=== PATIENT | female | born 1970 | race Caucasian/White ===

== ENCOUNTER 2024-04-02 13:06 | Emergency (ER) | payer BC, SELFPAY ==
[2024-04-02 13:24] VITALS: BP 126/96; PULSE 95; RESP 18; TEMP 36.7; O2SAT 100
--- NOTE | 2024-04-02 13:25 | PC.NURSE ---
PT BROUGHT IN A KNIFE WITH ARRIVAL BY EMS. SECURITY SECURED KNIFE DOWNSTAIRS IN LOCKED OFFICE
--- NOTE | 2024-04-02 14:35 | PC.NURSE ---
PT ANGRY THAT I WONT' GIVE HER KNIFE BACK SO SHE CAN OPEN UP HER CAN OF BEANS. SHE IS LEAVING. KNIFE BROUGHT BACK FROM SECURITY AND GIVEN TO PT AND SHE WALKED OUT OF THE DEPARTMENT WITH HER CAN OF BEANS AND OTHER BELONGINGS
== END 2024-04-02 15:22 | disposition left against medical advice (07) ==
LOC: ANHED 15:01
DX: R10.2 Pelvic and perineal pain (principal)
CPT/HCPCS: 99199

== ENCOUNTER 2024-06-14 17:51 | Emergency (ER) | payer BC, SELFPAY ==
--- NOTE | 2024-06-14 18:27 | PC.NURSE ---
pt left d/t wait times.
--- NOTE | 2024-06-14 21:38 | PC.NURSE ---
called at 2124 without answer
--- NOTE | 2024-06-15 00:30 | ED_ITS ---
HPI - Female Genitourinary General Chief complaint: Urogenital-Female Stated complaint: UTI symptoms Time Seen by Provider: 06/15/24 00:20 Source: patient Mode of arrival: ambulatory Limitations: no limitations History of Present Illness HPI Narrative: 53 YEARS OLD WHITE FEMALE CAME TO THE ED WALKING COMPLAINING OF BURNING URINATION FOR THE LAST 2 WEEKS. PATIENT WAS TREATED AT [facility], PATIENT DOES REMEMBER THE NAME OF THE ANTIBIOTIC. PATIENT IS HOMELESS. SHE DENIES ANY FEVER, CHILLS, NAUSEA, VOMITING, ABDOMINAL PAIN OR BACK PAIN. PATIENT REQUESTED A SANDWICH AND DRINK AND A BUS PASS. Related Data Allergies Allergy/AdvReac Type Severity Reaction Status Date / Time PROPOXYPHENE NAPSYLATE Allergy Mild Unknown Uncoded 04/02/24 13:29 Review of Systems Review of Systems: All systems reviewed & are unremarkable except as noted in HPI and below Exam Narrative: GENERAL APPEARANCE: WELL-DEVELOPED, WELL-NOURISHED SKIN: NORMAL COLOR CHEST AND RESPIRATORY: AIRWAY PATENT, NO RESPIRATORY DISTRESS, NO ACCESSORY MUSCLE USE HEART: REGULAR RATE/RHYTHM ABDOMEN: SOFT, NONTENDER, NO ORGANOMEGALY, QUIET BOWEL SOUNDS NEUROLOGIC: ALERT AND ORIENTED ?3, DIRECTOR SOFTWARE IS NORMAL TESTED, NO GROSS MOTOR DEFICIT MDM - Female Genitourinary MDM Narrative Medical decision making narrative: PATIENT CAME WITH DYSURIA VITAL SIGNS ARE STABLE PHYSICAL EXAMINATION SHOWING A HOMELESS PATIENT, POOR HYGIENIC CONDITION, OTHERWISE INSIGNIFICANT DIFFERENTIAL DIAGNOSIS URINARY TRACT INFECTION URINALYSIS SHOWED SHOWED Differential Diagnosis Differential diagnosis: Likely other ( ABOVE) Lab Data Labs: Lab Results 06/15/24 Range/Units 00:39 Urine Color Pending Urine Appearance Pending Urine pH Pending Ur Specific [place] Pending Urine Protein Pending Urine Glucose (UA) Pending Urine Ketones Pending Ur Blood (Man) Pending Urine Nitrate Pending Urine Bilirubin Pending Urine Urobilinogen Pending Add Ur Microanalysis Pending Leukocyte Esterase Rfl Pending Urine RBC Pending Urine WBC Pending Ur Squamous Epith Cells Pending Urine Bacteria Pending Urine Casts Pending Critical Care Time Critical Care Time Critical Care Time: No Discharge Plan Discharge Clinical Impression: Urinary tract infection Patient Disposition: Left Without Being Seen Instructions: Urinary Tract Infection in Women (ED) Additional Instructions: RETURN IF SYMPTOMS ARE WORSENING , CALL YOUR FAMILY PHYSICIAN FOR APPOINTMENT, TAKE TYLENOL NEEDED FOR ACHES AND PAIN, CONTINUE HOME MEDICATIONS. Prescriptions: New ciprofloxacin HCl [Cipro] 500 mg tablet 500 mg PO Q12H Qty: 14 0RF phenazopyridine [Pyridium] 200 mg tablet 200 mg PO TID PRN (Reason: pain) Qty: 6 0RF Follow-up/Referrals: UNKNOWN,DOCTOR [Primary Care Provider] -
[2024-06-15 00:52] LABS: Add Urine Microscopic? YES; Appearance Urine Clear (Clear); Bacteria Urine None Seen /hpf; Bilirubin Urine Negative (Negative); Blood Urine Negative (Negative); Color Urine Yellow (Yellow); Glucose Urine UA Negative (Negative); Ketones Urine Negative (Negative); Leukocyte Esterase Ur 2+ LEU/UL (Negative); Need Manual Microscopic Reviewed; Nitrate Urine Negative (Negative); Non Pathogenic Casts 0-2; Protein Urine Negative (Negative); RBC Urine 0-2 /hpf (0-2); Specific Grav Ur 1.008 (1.001-1.035); Squamous Epithelial Cell Urine Occasional /hpf (Few); Urobilinogen Urine 0.2 mg/dL (<2.0); WBC Urine 0-5 /hpf (0-3)
== END 2024-06-15 01:30 | disposition home or self-care (01) ==
PROVIDERS: Emergency Medicine; Emergency Provider Emergency Medicine
DX: N39.0 Urinary tract infection, site not specified (principal)
CPT/HCPCS: 81001; 87086; 99283

== ENCOUNTER 2024-06-17 12:52 | Emergency (ER) | payer BC, SELFPAY ==
[2024-06-17 13:01] VITALS: BP 107/79; PULSE 104; RESP 16; TEMP 36.3; O2SAT 99
--- NOTE | 2024-06-17 14:13 | PC.NURSE ---
pt said I am not able to urinate at this time. Pt is asking to eat and drink first.
--- NOTE | 2024-06-17 14:53 | PC.NURSE ---
Nurse noticed the supply drawer being completely empty. Pt denied getting into the drawer. Ed security called and pt's belonging bag was searched by the security and all the missing supplies were found.
[2024-06-17 14:54] LABS: Add Urine Microscopic? YES; Appearance Urine Clear (Clear); Bacteria Urine Rare /hpf; Bilirubin Urine Negative (Negative); Blood Urine Negative (Negative); Color Urine Yellow (Yellow); Glucose Urine UA Negative (Negative); Ketones Urine Negative (Negative); Leukocyte Esterase Ur 3+ LEU/UL (Negative); Nitrate Urine Negative (Negative); Non Pathogenic Casts 0-2; Protein Urine Negative (Negative); RBC Urine 0-2 /hpf (0-2); Specific Grav Ur 1.018 (1.001-1.035); Squamous Epithelial Cell Urine Moderate /hpf (Few); pH Urine 5.5 (5.0-9.0)
--- NOTE | 2024-06-17 14:59 | ED_ITS ---
HPI - Female Genitourinary General Chief complaint: Urogenital-Female Stated complaint: UTI/ STI Time Seen by Provider: 06/17/24 13:11 Source: patient Mode of arrival: ambulatory Limitations: no limitations History of Present Illness HPI Narrative: 57-year-old here with the complaints of this area for last few days is. She denies any fever or chills. She was at the police station of recommended him to come to the ER she denies any fever chills. No history of nausea vomiting. She wants something to eat. Patient states that she is on a Pyridium and she ran out of the medication few days ago. MD elicited complaint: dysuria Pertinent past history: recurrent UTIs Female Urogenital Radiation: Non-Radiating Vaginal discharge: none Vaginal bleeding: none Urinary symptoms: Dysuria Exacerbating factors: none Related Data Allergies Allergy/AdvReac Type Severity Reaction Status Date / Time PROPOXYPHENE NAPSYLATE Allergy Mild Unknown Uncoded 04/02/24 13:29 Review of Systems Review of Systems: All systems reviewed & are unremarkable except as noted in HPI and below Eyes: Eyes: Reports no additional eye complaints ENT: Reports system reviewed and no additional complaints, except as documented Cardiovascular: Cardiovascular: Reports no additional cardiovascular complaints Respiratory: Respiratory: Reports no additional respiratory complaints Gastrointestinal: Gastrointestinal: Reports no additional gastrointestinal complaints Genitourinary: Genitourinary: Reports as per HPI Musculoskeletal: Musculoskeletal: Reports no additional musculoskeletal complaints Neurologic: Reports system reviewed and no additional complaints, except as documented Exam Narrative: GENERAL: Well-appearing, well-nourished, and in no acute distress. HEAD: Normocephalic, atraumatic. EYES: PERRLA and EOMI.. NECK: Supple. CHEST: Clear to auscultation. No respiratory distress. HEART: Regular rate and rhythm. No murmur heard. Normal peripheral puls EXTREMITIES: Normal range of motion. No edema. SKIN: Warm, dry, no rash. NEURO: No focal deficits. Alert and oriented x3. PSYCH: Normal mood and affect. Course Course Emergency Course: informed patient about her lab work. Advised her to take medication as prescribed more fluids as tolerated Vital Signs Vital signs: Vital Signs Temperature 36.3 C L 06/17/24 13:01 Pulse Rate 104 H 06/17/24 13:01 Respiratory Rate 16 06/17/24 13:01 Blood Pressure 107/79 06/17/24 13:01 Pulse Oximetry 99 06/17/24 13:01 Oxygen Delivery Room Air 06/17/24 13:01 Temperature 36.3 C L 06/17/24 13:01 Pulse Rate 104 H 06/17/24 13:01 Respiratory Rate 16 06/17/24 13:01 Blood Pressure 107/79 06/17/24 13:01 Pulse Oximetry 99 06/17/24 13:01 Oxygen Delivery Room Air 06/17/24 13:01 MDM - Female Genitourinary Lab Data Labs: Lab Results 06/17/24 Range/Units 14:42 Urine Color Yellow (Yellow) Urine Appearance Clear (Clear) Urine pH 5.5 (5.0-9.0) Ur Specific [place] 1.018 (1.001-1.035) Urine Protein Negative (Negative) mg/dL Urine Glucose (UA) Negative (Negative) mg/dL Urine Ketones Negative (Negative) mg/dL Ur Blood (Man) Negative (Negative) Urine Nitrate Negative (Negative) Urine Bilirubin Negative (Negative) Urine Urobilinogen 1.0 (<2.0) mg/dL Leukocyte Esterase Rfl 3+ H (Negative) CARINE/UL Urine RBC 0-2 (0-2) /hpf Urine WBC 6-10 H (0-3) /hpf Ur Squamous Epith Cells Moderate (Few) /hpf Urine Bacteria Rare /hpf Urine Casts 0-2 Discharge Plan Discharge Clinical Impression: Dysuria Patient Disposition: Home, Self-Care Condition: Stable Instructions: Dysuria (ED) Prescriptions: New phenazopyridine [Pyridium] 100 mg tablet 100 mg PO TID PRN (Reason: pain) Qty: 14 0RF No Action phenazopyridine [Pyridium] 200 mg tablet 200 mg PO TID PRN (Reason: pain) Qty: 6 0RF Follow-up/Referrals: PHYSICIAN,HORIZONTAL RESAW OPERATOR [Primary Care Provider] - Wally Corrales MD [Physician] - Time of Disposition: 15:10
== END 2024-06-17 15:37 | disposition home or self-care (01) ==
PROVIDERS: Emergency Provider Family Medicine
DX: R30.0 Dysuria (principal)
CPT/HCPCS: 81001; 87086; 99283